=== PATIENT | female | born 1995 | race Caucasian/White ===

== ENCOUNTER 2016-04-08 18:30 | Emergency (ER) | payer SELFPAY ==
[~2016-04-08] VITALS: Ht 162.6 cm; Wt 53.5 kg
[2016-04-08 19:01] VITALS: Ht 162.6 cm; Wt 53.5 kg
== END 2016-04-08 21:24 | disposition left against medical advice (07) ==
LOC: FTE 18:30
DX: Z53.21 Procedure and treatment not carried out due to patient leaving prior to being seen by health care provider (principal)

== ENCOUNTER 2016-04-10 12:47 | Emergency (ER) | payer BC ==
[~2016-04-10] VITALS: Wt 58.0 kg
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
--- NOTE | 2016-04-10 14:26 | RADRPT ---
PROCEDURE: XR Left Foot. CLINICAL INDICATION: left foot pain TECHNIQUE: AP, lateral and oblique views of the left foot was obtained. COMPARISON: None. FINDINGS: There is no evidence of fractures or dislocations. The bony mineralization is normal. No focal bon y blastic or lytic lesions. IMPRESSION: Negative left foot series. RPTAT:AAJJ Cristina Ernandez Physician Date Time Electronically viewed and signed by Cristina Ernandez Physician on 04/10/2016 14:26 /
--- NOTE | 2016-04-10 14:28 | RADRPT ---
PROCEDURE: Left ankle series. CLINICAL INDICATION: Pain TECHNIQUE: AP , oblique and lateral views of the left ankle were obtained. COMPARISON: None FINDINGS: There is no evidence of acute fractures or dislocations. The bony mineralization is normal. No foc al bony blastic or lytic lesions. There is soft tissue swelling of the left ankle slightly worse al miley the lateral aspect. Recommend clinical correlation. IMPRESSION: 1. Soft tissue swelling as above without evidence of acute fractures or dislocations. RPTAT:AAJJ Physician Luis Daniel Date Time Electronically viewed and signed by Cristina Ernandez Physician on 04/10/2016 14:28 /
[2016-04-10] MEDS ORDERED: IBUP-1542 PO (14:44)
== END 2016-04-10 15:36 | disposition home or self-care (01) ==
LOC: FTE 12:47
DX: S93.402A Sprain of unspecified ligament of left ankle, initial encounter (principal); W10.9XXA Fall (on) (from) unspecified stairs and steps, initial encounter; Y92.9 Unspecified place or not applicable
CPT/HCPCS: 73610

== ENCOUNTER 2016-05-20 15:32 | Emergency (ER) | payer BC ==
[~2016-05-20] VITALS: Wt 52.3 kg
[~2016-05-20 15:32] MED LIST: IBUP-1542 PO
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
== END 2016-05-20 18:28 | disposition home or self-care (01) ==
LOC: FTE 15:32
DX: S01.01XA Laceration without foreign body of scalp, initial encounter (principal); Y04.0XXA Assault by unarmed brawl or fight, initial encounter

== ENCOUNTER 2016-05-27 18:05 | Emergency (ER) | payer BC ==
[~2016-05-27] VITALS: Ht 160 cm; Wt 50.0 kg
[2016-05-27 18:07] VITALS: Ht 160 cm; Wt 50.0 kg
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
== END 2016-05-27 18:20 | disposition home or self-care (01) ==
LOC: E/R 18:05
DX: Z48.02 Encounter for removal of sutures (principal)
CPT/HCPCS: 99281